=== PATIENT | male | born 1995 | race Caucasian/White ===

== ENCOUNTER 2024-07-09 06:13 | Emergency (ER) | payer OTHER, MEDICAID, SELFPAY ==
[2024-07-09 06:16] VITALS: BMI 27.1
--- NOTE | 2024-07-09 06:29 | EDRME_ITS ---
Rapid Medical Screening Exam RME Arrival date/time: 07/09/24 06:13 28-year-old male presents to the emergency room with a chief complaint of left- sided flank pain and passing blood clots after having a stent placed in his ureter yesterday. I have greeted and performed a focused initial assessment of this patient. A comprehensive ED assessment and evaluation of the patient, analysis of all test results, and completion of the medical decision making process will be conducted by additional ED providers. Chief Complaint: General Adult/Misc Complain Time Seen by Provider: 07/09/24 06:25 Vital signs reviewed by provider: Yes
--- NOTE | 2024-07-09 06:29 | XR_ITS ---
Examination: CT abdomen and pelvis without contrast. Coronal 3-D reconstructions. Sagittal 2-D reconstructions. Date and time of exam:July 09, 2024, 0735 hours Comparison December 22, 2022 INDICATIONS: Status post ureteral stent placement yesterday with hematuria CTDI: vol (mGy): 7.87 DLP: (mGycm): 442 Technique: Axial images of the abdomen have been obtained, 3 mm slice thickness Intravenous contrast material has not been administered. Low dose protocols were performed. One or more of the following dose reduction techniques were used; automated exposure control, adjustment of the mA and/or KV according to patient size, use of iterative reconstruction technique. Findings: No focal liver or splenic lesions Absent gallbladder No pancreatic or adrenal mass Multiple left renal calculi, the largest 6 mm Left ureteral stent satisfactory position, minimal left hydronephrosis Aorta normal size No bowel obstruction Normal appendix Air in the urinary bladder IMPRESSION: Multiple left renal calculi Left ureteral stent satisfactory position, minimal left hydronephrosis
[2024-07-09 06:30] VITALS: BP 137/83; PULSE 84; RESP 16; TEMP 37.2; O2SAT 98
[2024-07-09 07:31] LABS: Alanine Aminotransferase 32 U/L (10-49); Albumin, Serum 4.9 gm/dL (3.5-5.0); Albumin/Globulin Ratio 1.9 (1.2-2.2); Alkaline Phosphatase 53 U/L (46-116); Anion Gap 6 (7-16); Aspartate Amino Transferase 27 U/L (0-34); BUN/Creatinine Ratio 9 Ratio (12-20); Bilirubin,Total 1.5 mg/dL (0.3-1.2); Blood Urea Nitrogen 11 mg/dL (9-23); Calcium 9.7 mg/dL (8.3-10.6); Calcium (Corrected) 9.7 mg/dL (8.5-10.1); Chloride 105 mMol/L (98-107); Creatinine (Component) 1.2 mg/dL (0.6-1.3); Estimated Creatinine Clearance 102.4 mL/min (>60); Globulin 2.6 gm/dL (2.3-3.5); Glucose 105 mg/dL (74-106); Lipase 30 U/L (12-53); Osmolality,Calculated 282 (275-295); Potassium 4.5 mMol/L (3.4-5.1); Sodium 142 mMol/L (136-145); Total Protein 7.5 gm/dL (5.7-8.2); eGFR > 60 See Note
[2024-07-09] MEDS: KETOROLAC INJ 60 MG/2 ML VIAL 30 MG IM (07:44)
[2024-07-09] MEDS: ONDANSETRON ODT 4 MG TABRAP PO (07:44)
[2024-07-09 07:58] LABS: Basophils % (Auto) 0 % (0-2.5); Eosinophils # (Auto) 0.1 Thou/mm3 (0.0-0.5); Eosinophils % (Auto) 1 % (0-10); Hematocrit 50.5 % (41.0-53.0); Hemoglobin 17.8 g/dL (13.5-16.0); Immature Granulocytes % (Auto) 0 % (0-0); Immature Granulocytes Auto 0.01 Thou/mm3 (0.00-0.00); Lymphocytes # (Auto) 1.9 Thou/mm3 (1.0-4.8); Lymphocytes % (Auto) 24 % (10-50); Mean Corpuscular HGB Conc 35.2 g/dl (31.0-37.0); Mean Corpuscular Hemoglobin 31.8 pg (25.0-35.0); Mean Corpuscular Volume 90 fL (80-100); Monocytes # (Auto) 0.6 Thou/mm3 (0.0-0.8); Monocytes % (Auto) 8 % (0-12); Neutrophils # (Auto) 5.2 Thou/mm3 (1.8-7.7); Neutrophils % (Auto) 66 % (37-80); Nucleated Red Blood Cell % 0 /100 WBC (0); Platelet Count 227 Thou/mm3 (140-440); RDW Standard Deviation 38.9 fL (35.1-43.9); Red Blood Count 5.59 Miln/mm3 (4.50-5.90); White Blood Count 7.9 Thou/mm3 (3.8-10.6)
[2024-07-09 09:57] VITALS: BP 139/59; PULSE 72; RESP 18; TEMP 37.1; O2SAT 98
--- NOTE | 2024-07-09 10:00 | PC.NURSE ---
PT REPORTS HE HAS NO PAIN AFTER RECEIVING MEDICATION. AWAITING PROVIDER ASSESSMENT, TIANNA AT BEDSIDE ATTENTIVE TO PT. CALL ZIMMER IN REACH
--- NOTE | 2024-07-09 10:59 | PD.EDADULT ---
ED General RME/HPI General Chief complaint: General Adult/Misc Complain Stated complaint: BLOOD IN URINE DIFFICULTY URINATING Time Seen by Provider: 07/09/24 06:25 Arrival date/time: 07/09/24 06:13 Limitations: no limitations RME / HPI RME / HPI narrative: 07/09/24 06:13 28-year-old male presents to the emergency room with a chief complaint of left-sided flank pain and passing blood clots after having a stent placed in his ureter yesterday. I have greeted and performed a focused initial assessment of this patient. A comprehensive ED assessment and evaluation of the patient, analysis of all test results, and completion of the medical decision making process will be conducted by additional ED providers. DR. MOJICA MAIN ED EVALUATION: 28 year old male with history of kidney stones presents to the ED for evaluation of left flank pain and concerns of urinating blood clots s/p ureteral stent placement yesterday. Denies fevers, chills, sweats, n/v. No known modifying factors at home. Related Data Home Medications ?Medication ?Instructions ?Recorded ?Confirmed quetiapine 400 mg tablet (Seroquel) 400 mg PO BID 08/26/17 10/07/19 Previous Rx's ?Medication ?Instructions ?Recorded fluoxetine 10 mg capsule 20 mg (2 x 10 mg) PO QHS #60 caps 04/17/18 topiramate 100 mg tablet 100 mg PO QHS #30 tabs 04/17/18 ibuprofen 800 mg tablet 800 mg PO TID #30 tabs 08/12/19 acetaminophen 325 mg capsule 975 mg (3 x 325 mg) PO Q6H PRN 10/07/19 pain #30 caps ibuprofen 800 mg tablet 800 mg PO TID PRN pain #30 tabs 10/07/19 ibuprofen 800 mg tablet 800 mg PO TID PRN pain #30 tabs 11/03/19 loperamide 2 mg capsule (Imodium 2 mg PO Q6H PRN loose stool #14 11/03/19 A-D) caps tamsulosin 0.4 mg capsule (Flomax) 0.4 mg PO QDAY #14 caps 10/15/20 ketorolac 10 mg tablet 10 mg PO Q8H #10 tabs 03/18/21 hydrocodone 5 mg-acetaminophen 325 1 tab PO TID PRN pain #10 tabs 07/09/24 mg tablet Allergies Allergy/AdvReac Type Severity Reaction Status Date / Time codeine Allergy Severe HIVES Verified 07/09/24 06:20 Review of Systems Review of Systems Narrative Review of Systems: GEN: No fever, no chills, no weight loss EYES: No discharge, no visual changes, no pain HEENT: No ear pain, no congestion, no sore throat PULM: No shortness of breath, no cough, no congestion CV: No chest pain, no dyspnea on exertion, no palpitations GI: No nausea, no vomiting, no diarrhea, +left flank pain, no constipation : +urinating blood clots. No frequency, no urgency, no dysuria MUSC/SKEL: No joint pain, no back pain SKIN: No rash NEURO: No weakness, no headache Past Medical History Past Medical History CARDIAC: Negative Cardiac Disorders or Congestive Heart Failure RESPIRATORY: Negative Chronic Obstructive Pulmonary Disease (COPD) or Asthma GENITOURINARY: Negative Renal Disease ENDOCRINE: Negative Diabetes Mellitus Type 1 or Diabetes Mellitus Type 2 HEMATOLOGIC: Negative Sickle Cell Disease PSYCHO/SOCIAL: Positive Bipolar Disorder Social History SMOKING STATUS: Current some day smoker ED Exam General Limitations: Present no limitations General appearance: Present alert and in no apparent distress Head Head exam: Present atraumatic, normocephalic and normal inspection Eye Eye exam: Present normal appearance, PERRL and EOMI ENT ENT exam: Present normal exam, normal oropharynx and mucous membranes moist Neck Neck exam: Present normal inspection, full ROM and trachea midline Chest Chest inspection: Present normal inspection and symmetric chest wall rise Respiratory Respiratory exam: Present normal lung sounds bilaterally Cardiovascular Cardiovascular exam: Present regular rate, normal rhythm and normal heart sounds Abdominal Exam Abdominal exam: Present soft and normal bowel sounds Extremities Exam Extremities exam: Present normal inspection and full ROM Back Exam Back exam: Present normal inspection and full ROM Neurological Exam Neurological exam: Present alert, oriented X3 and CN II-XII intact Psychiatric Psychiatric exam: Present normal affect and normal mood Skin Skin exam: Present warm, dry, intact and normal color Course Quality Measures none Orders Category Date Time Status CT abdomen pelvis wo con Stat Exams 07/09/24 06:29 Completed CBC Stat Lab 07/09/24 06:45 Completed CMP [Comprehensive Metabolic Panel] Stat Lab 07/09/24 06:45 Completed Lipase Stat Lab 07/09/24 06:45 Completed Urine Culture Stat Lab 07/09/24 06:45 Received Ketorolac Inj [Toradol Inj] Med 07/09/24 06:29 Discontinued 30 mg IM X1 ONE Ondansetron Odt [Zofran Odt] Med 07/09/24 06:29 Discontinued 4 mg PO X1 ONE Vital Signs Vital signs: Vital Signs Temperature 98.9 F 07/09/24 06:30 Pulse Rate 84 07/09/24 06:30 Respiratory Rate 16 07/09/24 06:30 Blood Pressure 137/83 H 07/09/24 06:30 Pulse Oximetry (%) 98 07/09/24 06:30 Oxygen Delivery Method Room Air 07/09/24 06:30 Pulse ox is 98% on room air which is adequate. Discharge Plan Plan Patient Disposition: HOME (Self Care) Prescriptions/Referrals Prescriptions/Med Rec: New hydrocodone-acetaminophen 5-325 mg tablet 1 tab PO TID MDD 4 PRN (Reason: pain) Qty: 10 0RF No Action fluoxetine 10 mg capsule 20 mg PO QHS Qty: 60 0RF topiramate 100 mg tablet 100 mg PO QHS Qty: 30 0RF ibuprofen 800 mg tablet 800 mg PO TID Qty: 30 0RF quetiapine [Seroquel] 400 mg Tablet 400 mg PO BID ibuprofen 800 mg tablet 800 mg PO TID PRN (Reason: pain) Qty: 30 0RF acetaminophen 325 mg capsule 975 mg PO Q6H PRN (Reason: pain) Qty: 30 0RF ibuprofen 800 mg tablet 800 mg PO TID PRN (Reason: pain) Qty: 30 0RF loperamide [Imodium A-D] 2 mg capsule 2 mg PO Q6H PRN (Reason: loose stool) Qty: 14 0RF tamsulosin [Flomax] 0.4 mg capsule 0.4 mg PO QDAY Qty: 14 0RF ketorolac 10 mg tablet 10 mg PO Q8H Qty: 10 0RF Referrals: No Primary/Family,Physician [Primary Care Provider] - In 1 week Problem List Clinical Impression: S/P ureteral stent placement, Kidney stone Patient/Caregiver Discharge Instructions Additional Instructions: Follow up with your urologist within 3-5 days for recheck. You can return to the emergency department sooner if symptoms worsen or if you notice any new, concerning issues. Print Language: [place] Citizen Stand Alone Forms: [employer] Award Info., Work/School Release, Patient Portal Info Letter MDM Narrative MDM hospital course (for use when minimal MDM required): 28 year old male who is s/p stent placement for kidney stones presented to the ED with concerns of urinating blood clots. I advised this is expected and normal after stent placement. Additionally requesting 1 week off of work. While in the ED patient also complains of pain. Will prescribe [place] for pain. Clinical Information Provided by: patient Medical Records reviewed [facility] Meds/Rx considered, not ordered None Labs/Rad/Tests considered, not ordered None Chronic Illness/Social Conditions which may negatively complicate care or outcome(s)-explain: None or not applicable EKG EKG not done Labs Labs: Interpreted by [place] Lab(s) Interpretation(s): CBC and CMP within normal limits Imaging Imaging interpretation: Interpreted by [place] Imaging Interpretation(s): Ordering Physician: Domingo Zambrano Date of Service: 07/09/24 Procedure(s): CT abdomen pelvis wo con Accession Number(s): [id number] cc: Domingo Zambrano; Ko Mcdonough MD; NO PRIMARY/FAMILY,PHYSICIAN~ Examination: CT abdomen and pelvis without contrast. Coronal 3-D reconstructions. Sagittal 2-D reconstructions. Date and time of exam:July 09, 2024, 0735 hours Comparison December 22, 2022 INDICATIONS: Status post ureteral stent placement yesterday with hematuria CTDI: vol (mGy): 7.87 DLP: (mGycm): 442 Technique: Axial images of the abdomen have been obtained, 3 mm slice thickness Intravenous contrast material has not been administered. Low dose protocols were performed. One or more of the following dose reduction techniques were used; automated exposure control, adjustment of the mA and/or KV according to patient size, use of iterative reconstruction technique. Findings: No focal liver or splenic lesions Absent gallbladder No pancreatic or adrenal mass Multiple left renal calculi, the largest 6 mm Left ureteral stent satisfactory position, minimal left hydronephrosis Aorta normal size No bowel obstruction Normal appendix Air in the urinary bladder IMPRESSION: Multiple left renal calculi Left ureteral stent satisfactory position, minimal left hydronephrosis Dictated By: Ko Mcdonough MD Signed By: <Electronically signed by Ko Mcdonough MD in [place]> 07/09/24 0812 Medication Administration(s) Medication Administration History Discontinued Medications Ketorolac Tromethamine (Ketorolac Inj 60 Mg/2 Ml Vial) 30 mg IM X1 ONE Stop: 07/09/24 06:30 Last Admin: 07/09/24 07:44 Dose: 30 mg Documented By: LAKSHMI Comments: Gave with Nicolette OZUNA Ondansetron HCl (Ondansetron Odt 4 Mg Tabrap) 4 mg PO X1 ONE; Protocol Stop: 07/09/24 06:30 Last Admin: 07/09/24 07:44 Dose: 4 mg Documented By: LAKSHMI See above
== END 2024-07-09 11:29 | disposition home or self-care (01) ==
PROVIDERS: Nurse Practitioner Family; Emergency Provider Family Medicine
DX: N13.2 Hydronephrosis with renal and ureteral calculous obstruction (principal); Z96.0 Presence of urogenital implants
CPT/HCPCS: 36415; 74176; 80053; 81001; 83690; 85025; 87086; 96372; 99284; J1885; Q0162

== ENCOUNTER 2024-12-06 11:24 | Emergency (ER) | payer OTHER, MEDICAID, SELFPAY ==
[2024-12-06 11:45] VITALS: BP 136/80; PULSE 87; RESP 18; TEMP 36.9; O2SAT 100; BMI 25.4
--- NOTE | 2024-12-06 11:47 | EDRME_ITS ---
Rapid Medical Screening Exam [facility] Arrival date/time: 12/06/24 11:24 29-year-old male with no known medical history presents to the emergency room with a chief complaint of a headache, dizziness x 3 days. Patient states he had a head injury where he stood up and hit his head on a cabinet door. The patient had a laceration which he glued himself. Patient states he is not coming to the emergency room due to increased dizziness and headache. 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 A comprehensive ED assessment and evaluation of the patient, analysis of all test results, and completion of the medical decision making process will be conducted by additional ED providers. Chief Complaint: Head Injury Vital signs: Vital Signs Temperature 98.5 F 12/06/24 11:45 Pulse Rate 87 12/06/24 11:45 Respiratory Rate 18 12/06/24 11:45 Blood Pressure 136/80 H 12/06/24 11:45 Pulse Oximetry (%) 100 12/06/24 11:45 Oxygen Delivery Method Room Air 12/06/24 11:45 Vital signs reviewed by provider: Yes
--- NOTE | 2024-12-06 12:30 | PC.NURSE ---
PT STATES HE REFUSED LABS. I TOLD HIM ALL ELSE THAT WAS ORDERED WAS A CT SCAN. HE ASKED IF HE COULD BE CALLED AT HOME WHEN THEY WERE READY FOR HIM AND I TOLD HIM HE NEEDED TO STAY HERE. HE SAID HE WAS GOING TO LEAVE AND WALKED OUT. HE REFUSED TO SIGN THE AMA FORM. PT ELOPED.
== END 2024-12-06 12:31 | disposition left against medical advice (07) ==
LOC: SERX 12:45
PROVIDERS: Emergency Provider Emergency Medicine
DX: S01.91XA Laceration without foreign body of unspecified part of head, initial encounter (principal); W22.8XXA Striking against or struck by other objects, initial encounter; Z53.29 Procedure and treatment not carried out because of patient's decision for other reasons
CPT/HCPCS: 80053; 85025; 99283